=== PATIENT | male | born 1940 | race Caucasian/White ===

== ENCOUNTER 2017-06-01 11:50 | Day surgery (SDC) | payer MEDICARE, BC ==
[~2017-06-01 11:50] MED LIST: AMLO10 PO; ASPI81 PO; CLOP75 PO; GLYB1TAB50 PO; GLYB1TAB51 PO; LIPI80TA16 PO; METF-324 PO; NIAC500T18 PO; PIOG45 PO; RAMI10CA35 PO; TAB-TAB PO
[2017-06-01] MEDS ORDERED: LIPI40TA PO (12:32)
[2017-06-01] MEDS ORDERED: APIX5TAB PO (12:32)
[2017-06-01] MEDS ORDERED: MULT400T PO (12:32)
[2017-06-01] MEDS ORDERED: GLIP5TAB8 PO (12:32)
[2017-06-01] MEDS ORDERED: CARV6.252 PO (12:32)
[2017-06-01] MEDS ORDERED: PLAV75TA29 PO (12:32)
[2017-06-01] MEDS ORDERED: LANTUS2P SQ (12:33)
[2017-06-01] MEDS ORDERED: TRAD5TAB PO (12:33)
[2017-06-01] MEDS ORDERED: FINA5TAB2 PO (12:33)
[2017-06-01] MEDS ORDERED: PROPOFOL 200 MG/20 ML AMP ONE (13:51)
--- NOTE | 2017-06-01 21:52 | EKG ---
Date Performed: 06/01/2017 Time Performed: 14:20:24 PTAGE: 76 years EKG: Sinus rhythm with borderline 1st degree A-V block. Left axis deviation Poor R wave progression - cannot rule out anteroseptal infarct Lateral T wave changes are nonspecific Abnormal ECG PREVIOUS TRACING : 06/01/2017 12.09 Compared to the previous tracing a fib no longer present DOCTOR: Liz Bose Interpretating Date/Time 06/01/2017 21:51:05
--- NOTE | 2017-06-01 22:06 | EKG ---
Date Performed: 06/01/2017 Time Performed: 12:09:30 PTAGE: 76 years EKG: Atrial fibrillation. Leftward axis Anteroseptal Q waves Lateral T wave changes are nonspeci fic Abnormal ECG PREVIOUS TRACING : 07/13/2012 17.37 Compared to the previous tracing SR no longer present DOCTOR: Liz Bose Interpretating Date/Time 06/01/2017 22:04:45
== END 2017-06-01 15:26 | disposition home or self-care (01) ==
LOC: HSDC 11:50 → HDIC 11:51 → HSDC 15:26
PROVIDERS: ATTEND Internal Medicine Interventional Cardiology
DX: I48.91 Unspecified atrial fibrillation (principal); I25.10 Atherosclerotic heart disease of native coronary artery without angina pectoris; E11.9 Type 2 diabetes mellitus without complications; I10 Essential (primary) hypertension; Z95.1 Presence of aortocoronary bypass graft; I34.0 Nonrheumatic mitral (valve) insufficiency; I36.1 Nonrheumatic tricuspid (valve) insufficiency
CPT/HCPCS: 92960; 93005